=== PATIENT | female | born 2005 | race Caucasian/White ===

== ENCOUNTER 2025-05-09 13:56 | Emergency (ER) | payer BC, SELFPAY ==
--- NOTE | ~2025-05-09 | CT_ITS ---
CLINICAL HISTORY: R flank pain, RLQ pain CT abdomen and pelvis with contrast Comparison: None available Findings: No consolidation at the lung bases. Unremarkable gallbladder and bladder. Lobular contour of the kidneys, a normal variant. The kidneys enhance normally. No hydronephrosis or nephrolithiasis. 1.7 cm right corpus luteum. Intrauterine device within the uterus the other solid organs are unremarkable. No bowel wall thickening or dilation. A normal appendix is identified measuring 5 mm without periappendiceal stranding. Normal vasculature. No lymphadenopathy. No ascites. No acute osseous abnormality. Impression: No acute pathology. Normal appendix. No urinary tract stone, obstruction or CT evidence of infection. Right lower quadrant pain may be secondary to a normal right corpus luteum. This document has been electronically signed by: Katia Bowman MD on 05/09/2025 17:54:12
[2025-05-09 14:00] VITALS: BP 115/71; PULSE 115; RESP 16; TEMP 37.2; O2SAT 97; BMI 20.3
--- NOTE | 2025-05-09 14:03 | ED.BACK ---
HPI - Back Pain/Injury General Chief Complaint: Back Pain/Injury Stated Complaint: Sent from urgent care, abd pain Time Seen by Provider: 05/09/25 16:02 Source: patient and RN notes reviewed Mode of arrival: ambulatory Limitations: no limitations History of Present Illness ED Provider: Renetta Campos PA-C HPI Narrative: This is a 19-year-old female, with a history of depression, who presents to the emergency department with concerns of right-sided back pain and abdominal tenderness for the last week. Patient reports that 1 month ago she had a urinary tract infection and was treated with a course of antibiotics. No injury or trauma to her back. She finish the entire course of antibiotics. She states that over the last week she has had right-sided flank pain and abdominal tenderness. She denies any fevers, chills, chest pain, shortness of breath, nausea, vomiting or diarrhea or constipation. She denies any urinary symptoms. Last menstrual period was 04/16. No abnormal vaginal discharge or bleeding. No other complaints or concerns at this time. MD elicited complaint: back pain Onset (ago): week(s) Timing: constant Severity: moderate Similar Symptoms Previously: No Quality: aching Location: right flank Radiation: none Exacerbating factors: none Relieving factors: none Associated symptoms: denies other symptoms Related Data Allergies Allergy/AdvReac Type Severity Reaction Status Date / Time No Known Allergies Allergy Verified 05/09/25 14:04 Review of Systems Review of Systems: Yes all other systems are reviewed and are negative Constitutional: Constitutional: Reports as per [facility] Social History Social History Smoked in Last 30 Days: No Use of substances other than those prescribed or required for medical reasons: No Advance Directives: No Advance Directives Information Provided: No Do you have a plan to hurt others: No Plan Patient : No Physical Exam Vital Signs: Vital Signs: Last Vital Signs Temp 98.4 F 05/09/25 17:36 Pulse 100 05/09/25 17:36 Resp 18 05/09/25 17:36 BP 112/64 05/09/25 17:36 Pulse Ox 98 05/09/25 17:36 O2 Del Method Room Air 05/09/25 17:36 BMI result Body Mass Index 20.3 Const: General: cooperative, comfortable and no acute distress Orientation/consciousness: patient oriented x3 Limitations: no limitations HEENT: Head: Yes normal to inspection, Yes normocephalic and Yes atraumatic Ears: hearing grossly normal bilaterally General nose exam: Normal external nose present Face and sinus: Yes normal facial exam Mouth: Normal oral and palatal mucosa present, oropharynx normal and moist mucous membranes Throat: Yes posterior oropharynx normal Eyes: General: appearance normal, both eyes and all related structures Eyelids: Yes eyelids normal Conjunctivae: conjunctivae normal Sclerae: sclerae normal Pupils: Equal, round and reactive pupils present EOM: EOMs intact bilaterally Neck: Neck: Yes normal visual inspection, Yes full ROM and Yes no lymphadenopathy Lymphatic: no lymphadenopathy noted Chest: Chest palpation & inspection: normal inspection of the chest Resp: Effort & Inspection: normal respiratory effort and able to speak in complete sentences Auscultation: clear to auscultation bilaterally, no crackles, no rales, no rhonchi and no wheezes Cardio: Rate: regular rate Rhythm: regular rhythm Heart sounds: S1 normal heart sound present and S2 normal heart sound present GI: Other: Abdomen is soft, nontender, nondistended. Slight rebound with palpating llq and patient having pain in RLQ. : General: Yes no CVA tenderness Back/Spine/Pelvis: Back: no CVA tenderness Skin: General skin exam: no rashes or lesions noted Trauma: no lacerations or abrasions Wounds: no wounds Neuro: General: patient oriented x3 and moves all extremities Cranial nerves: Yes Equal, round and reactive pupils present Extrem: General: Yes normal to inspection Right upper extremity: normal to inspection Left upper extremity: normal to inspection Right lower extremity: normal to inspection Left lower extremity: normal to inspection Course Course Course Narrative: This is an RME performed by Radha Guevara CNP: Additional HPI, ROS, PE not included below will be deferred to primary provider. Patient is a 19-year-old female who presents emergency department for evaluation, and from urgent care. Has been experiencing flank pain for the past week, increases with deep inspiration. Per referral from urgent care generalized lower abdominal tenderness on exam with positive Rovsing sign. Denies URI symptoms. Denies GI/ symptoms. HCG was negative. Had microscopic hematuria but no sign of infection. Previously was treated for UTI [place] April of 2025. Plan: Serum labs Medications Administered Discontinued Medications Generic Name Dose Route Start Last Admin Trade Name Freq PRN Reason Stop Dose Admin Iohexol 85 ml 05/09/25 17:25 05/09/25 17:26 Iohexol 350 Mg/Ml 75 Ml Infus..Btl IV 05/09/25 17:26 85 ml ONCE ONE Administration Medical Decision Making Medical Decision Making [facility] Narrative: This is a 19-year-old female who presents emergency department with concerns of right-sided back pain/flank pain as well as abdominal pain for the last week. On arrival, vital signs reveal she is slightly tachycardic at 115bpm, likely secondary to anxiousness. Patient with no right-sided CVA tenderness. Does have slight rebound tenderness with palpation to the left abdomen into the right. Labs were obtained prior to my evaluation, she has no leukocytosis, stable H&H, chemistry with no significant electrolyte derangement. Urine revealing trace leuk esterases, 1+ bacteria, and squamous cells. Differential diagnoses include nephrolithiasis, muscle strain, spasm, appendicitis. Will obtain CT abdomen and pelvis to rule out any acute abdominal pathology. 1747 - repeat vitals reveal that patient heart rate is 100, she is anxious appearing, she has no leukocytosis, afebrile. Not in any current distress. 1803 - CT scan returns revealing no acute pathology, normal appendix, no urinary tract stone, obstruction or evidence of infection. She does have a right corpus luteum, otherwise no other acute findings. Discussed findings with patient, no current concerns. Stable for discharge. Differential Diagnosis Differential Diagnoses: The differential diagnosis associated with the presentation includes See above Admission/Observation Consideration of admission/observation: Escalation of care including admission/observation considered Lab Data [facility] Lab Attestation statement: I reviewed the patient's lab results. See MDM and course 05/09/25 14:33 05/09/25 14:33 Labs: Lab Results 05/09/25 Range/Units 14:33 WBC 6.4 (4.8-10.8) X10*3/uL RBC 4.85 (4.20-5.50) X10*6/uL Hgb 13.8 (12.0-16.0) g/dl Hct 41.2 (37.0-47.0) % MCV 84.9 (80.0-98.0) fL MCH 28.5 (27.0-33.0) pg MCHC 33.5 (31.0-35.0) g/dl RDW 13.4 (11.0-16.0) % Plt Count 211 (160-400) X10*3/uL MPV 9.7 (9.4-12.3) fL Immature Gran % (Auto) 0.5 H (0.0-0.4) % Neut % (Auto) 58.2 (45-73) % Lymph % (Auto) 30.4 (20-40) % [place] % (Auto) 7.8 (2-11) % Eos % (Auto) 2.3 (0-4) % Baso % (Auto) 0.8 (0-2) % Lymph # (Auto) 2.0 (1.2-4.9) X10*3/uL [place] # (Auto) 0.5 (0.1-1.2) X10*3/uL Eos # (Auto) 0.2 (0.0-0.4) X10*3/uL Baso # (Auto) 0.1 (0.0-0.2) X10*3/uL Abs Immat Gran (auto) 0.03 (0.00-0.03) X10*3/uL Absolute Neuts (auto) 3.7 (2.0-8.3) x10*3/uL Absolute Nucleated RBC 0.000 (0.0-0.012) X10*3/uL Nucleated RBC % (auto) 0.0 (0.0-0.2) /100WBC Sodium 139 (135-145) mmol/L Potassium 4.0 (3.3-5.1) mmol/L Chloride 108 (96-108) mmol/L Carbon Dioxide 24 (22-29) mmol/L Anion Gap 11 L (12-20) BUN 9 (9-16) mg/dL Creatinine 0.66 (0.5-1.4) mg/dL Estim Creat Clear Calc 115.0 Estimated GFR > 60 Random Glucose 85 (60-115) mg/dL Calcium 9.1 (8.4-10.2) mg/dL Total Bilirubin 0.4 (0.0-1.0) mg/dL AST 24 (5-31) U/L ALT 20 (0-31) U/L Alkaline Phosphatase 59 (39-117) U/L C-Reactive Protein 0.10 (< or = 0.50) mg/dL Total Protein 7.4 (6.5-8.0) g/dL Albumin 4.6 (3.5-5.0) g/dL Beta HCG, Quant < 2 mIU/mL Urine Color Yellow Urine Appearance Clear Urine pH 5.5 (5.0-9.0) Ur Specific [place] 1.025 (1.005-1.025) Urine Protein Negative (Neg-Trace) mg/dL Urine Glucose (UA) Negative (Negative) mg/dL Urine Ketones Trace (Negative) mg/dL Urine Blood Negative (Negative) Urine Nitrite Negative (Negative) Ur Leukocyte Esterase Trace H (Negative) Urine RBC 0-2 (0-2) /HPF Urine WBC 0-5 (0-5) /HPF Ur Squamous Epith Cells 3-5 (0-2) /HPF Urine Bacteria 1+ (None Seen) Hyaline Casts 0-2 (0-2) /LPF Radiology Impression Discussion of test interpretation with radiology: I have reviewed the radiologist's reading. Radiologist Impression: Findings: No consolidation at the lung bases. Unremarkable gallbladder and bladder. Lobular contour of the kidneys, a normal variant. The kidneys enhance normally. No hydronephrosis or nephrolithiasis. 1.7 cm right corpus luteum. Intrauterine device within the uterus the other solid organs are unremarkable. No bowel wall thickening or dilation. A normal appendix is identified measuring 5 mm without periappendiceal stranding. Normal vasculature. No lymphadenopathy. No ascites. No acute osseous abnormality. Impression: No acute pathology. Normal appendix. No urinary tract stone, obstruction or CT evidence of infection. Right lower quadrant pain may be secondary to a normal right corpus luteum. This document has been electronically signed by: Katia Bowman MD on 05/09/2025 17:54:12 Dictated By: Katia New MD Discharge Plan Discharge Clinical Impression: Acute right flank pain Patient Disposition: Home, Self-Care Instructions: Flank Pain (ED), Warm Compress or Soak (ED) Additional Instructions: You were seen in the ER with concerns of right-sided flank pain. Your workup today was reassuring. Your urine does have trace white cells, however this does not appear to be infectious at this point. We will call you if we need to start you on any antibiotics. Your CT scan does not show any findings to suggest why you are experiencing this pain. You have a corpus luteum on the right, which can cause discomfort. This is a normal finding, and part of your menstrual cycle. This may be attributed to musculoskeletal pain. You may alternate between ibuprofen and or Tylenol as needed for pain and symptoms. Rest, heat or ice can also help, gentle stretching, or massage can also help. Please follow-up with your primary care physician regarding this visit. If any new or worsening symptoms occur including but not limited to worsening pain, fevers, chills, chest pain, shortness of breath, please seek emergent care. Print Language: Luxembourger
[2025-05-09 14:41] LABS: MANUAL DIFF FLAG NO
[2025-05-09 14:42] LABS: Hematocrit 41.2 % (37.0-47.0); Hemoglobin 13.8 g/dl (12.0-16.0); Imm Gran Abs Auto 0.03 X10*3/uL (0.00-0.03); Imm Gran Pct Auto 0.5 % (0.0-0.4); Lymphocytes Absolute Auto 2.0 X10*3/uL (1.2-4.9); Mean Corpuscular HGB Conc 33.5 g/dl (31.0-35.0); Mean Corpuscular Hemoglobin 28.5 pg (27.0-33.0); Mean Corpuscular Volume 84.9 fL (80.0-98.0); NRBC Abs Auto 0.000 X10*3/uL (0.0-0.012); NRBC Pct Auto 0.0 /100WBC (0.0-0.2); Platelet Count 211 X10*3/uL (160-400); Red Blood Count 4.85 X10*6/uL (4.20-5.50); White Blood Count 6.4 X10*3/uL (4.8-10.8)
[2025-05-09 14:43] LABS: Appearance Urine Clear; Glucose Urine UA Negative (Negative); PH 5.5 (5.0-9.0); Specific Gravity - Urine 1.025 (1.005-1.025); UMIC TRIGGER UACC YES
[2025-05-09 15:16] LABS: Alanine Aminotransferase 20 U/L (0-31); Albumin Level 4.6 g/dL (3.5-5.0); Alkaline Phosphatase 59 U/L (39-117); Anion Gap 11 (12-20); Aspartate Amino Transferase 24 U/L (5-31); Blood Urea Nitrogen 9 mg/dL (9-16); Calcium 9.1 mg/dL (8.4-10.2); Carbon Dioxide 24 mmol/L (22-29); Chloride 108 mmol/L (96-108); Creatinine Clr Calc Pharmacy 115.0; Estimated Glomerular Filt Rate > 60; Potassium 4.0 mmol/L (3.3-5.1); Sodium 139 mmol/L (135-145); Total Protein 7.4 g/dL (6.5-8.0)
--- OUTSIDE RECORDS SUMMARY | 2025-05-09 16:24 | XMS_ITS | Data Portability ---
Author Organization [facility], [address] Address [address] [place] [address] Assessment No assessment recorded. Plan of Treatment Reminders Order Date Submit Date Provider Last Modified By Organization Details Last Modified Time Details Appointments None recorded. Lab None recorded. Referral None recorded. Procedures None recorded. Surgeries None recorded. Imaging None recorded. Medication Orders cephalexin [address] [id number], [phone] [place], [address], 4 14:49:16 Patient TargetsNo targets recorded. Patient InstructionsNo instructions recorded. Reason for Referral None Reported. Problems No Known Problems Medical Equipment None Reported. Allergies No known drug allergies Medications Name Sig Start Date Stop Date Status Note LastModified by Organization Details LastModified Time cephalexin 500 mg capsule TAKE 1 CAPSULE EVERY 8 HOURS BY ORAL ROUTE WITH MEAL(S) FOR 10 DAYS FOR INFECTION active Not Available Not Available No t Available DentaGel 1.1 % PLEASE SEE ATTACHED FOR DETAILED DIRECTIONS active Not Available Not Available N ot Available escitalopram 20 mg tablet TAKE 1 TABLET BY MOUTH EVERY DAY active Not Available Not Available No t Available Vitals Date Recorded Body height Body mass index (BMI) [Percentile] Per age and sex Body mass index (BMI) Body weight Oxygen saturation Oxygen saturation in Arterial blood by Pulse oximetry Heart rate Respiratory rate Body temperature Systolic And Diastolic Provider Name and Address Organization Details Last Updated DateTime 4 162.56 cm 9 % 18.4 kg/m2 97957.3 8 g 99 % 99 % 83 /min 18 /min 97.2 [degF] 107/72 mm[Hg] [facility] 14:43:45 Social History Question Answer Notes LastModified by Organizat ion Details LastModified Time Tobacco Smoking Status Never Smoker [facility] 02/06/2024 14:44:42 Have You Had A Flu Shot This Season? No Information not available 02/06/2024 If No, Would You Like A Flu Shot Today? No Information not available 02/06/2024 Have You Had Direct Contact, Or Contact During Intimacy, With Monkeypox Rash, Scabs, Or Body Fluids From A Person With Monkeypox? No Information not available 02/06/2024 What Was The Date Of Your Most Recent Tobacco Screening? 02/06/2024 Information not available 02/06/2024 What Is Your Relationship Status? Other DAITING Information not available 02/06/2024 Have You Recently Traveled Abroad? No Information no t available 02/06/2024 Are You Currently In School? No Information not available 02/06/2024 Sex: Unknown Functional Status Question Answer Note LastModified by Organization D etails LastModified Time Do you or have you ever used any other forms of tobacco or nicotine? No Information not available 02/06/2024 What is your level of alcohol consumption? None Information not available 02/06/2024 Are you currently employed? Yes Information not available 02/06/2024 Mental Status None recorded. Family History Relationship Description Onset Age of this Age Resolved Age Notes LastModified by Organization Details LastModified Time Father No current problems or disability [email or web address] waqas Not available 02/06/2024 14:44:25 Mother No current problems or disability [email or web address] waqas Not available 02/06/2024 14:44:25 Medical History No medical history recorded. Gynecological History Statement/Question Response Date of LMP 01/21/2024 Is there any chance of ? No Obstetrics History GPAL:G 0 P 0 0 0 0 Immunizations Vaccine Type Date Status Note Provider Nam e and Address Organization Details Recorded Time meningococcal B, recombinant 2 completed Salome Botello Heyliger null, [place] - [facility] 02/06/2024 14:44:05 HPV9 7 completed Salome Botello Heyliger null, [place] - [facility] 02/06/2024 14:44:05 HPV9 8 completed Salome Botello Heyliger null, PA - [facility] 02/06/2024 14:44:05 COVID-19, mRNA, LNP-S, PF, 30 mcg/0.3 mL dose 1 completed Salome Botello Heyliger null, [place] - [facility] 02/06/2024 14:44:05 COVID-19, mRNA, LNP-S, PF, 30 mcg/0.3 mL dose 1 completed Salome Botello Heyliger null, [place] - [facility] 02/06/2024 14:44:05 COVID-19, mRNA, LNP-S, PF, 30 mcg/0.3 mL dose 1 completed Salome Botello Heyliger null, [place] - [facility] 02/06/2024 14:44:05 Tdap 6 completed Salome Botello Heyliger null, PA - [facility] 02/06/2024 14:44:05 meningococcal MCV4P 1 completed Salome Botello Heyliger null, PA - [facility] 02/06/2024 14:44:05 meningococcal MCV4P 6 completed Salome Botello Heyliger null, [place] - [facility] 02/06/2024 14:44:05 Influenza, split virus, quadrivalent, PF 8 completed Salome Botello Heyliger null, PA - [facility] 02/06/2024 14:44:06 Influenza, split virus, quadrivalent, PF 9 completed Salome Botello Heyliger null, PA - [facility] 02/06/2024 14:44:06 Influenza, split virus, quadrivalent, PF 0 completed Salome Botello Heyliger null, [place] - [facility] 02/06/2024 14:44:06 Past Encounters Encounter ID Performer Location Encounter Start Date Encounter Closed Date Diagnosis/Indication Diagnosis SNOMED-CT Code Diagnosis ICD10 Code Diagnosis Note [id number] [address] [place] [id number] 05/11/2016 17:19:46 05/11/2016 17:38:23 [id number] Edson Simon NP [facility] [address] [place] [id number] 02/06/2024 13:57:44 02/06/2024 14:51:05 Paronychia of left thumb [id number] L03.012 Cellulitis is a skin infection caused by bacteria, most often strep or staph. It often occurs after a break in the skin from a scrape, cut, bite, or puncture, or after a rash. Cellulitis may be treated without doing tests to find out what caused it. But your doctor may do tests, if needed, to look for a specific bacteria, like methicilli n-resistan t Staphyloco ccus aureus (MRSA). The doctor has checked you carefully, but problems can develop later. If you notice any problems or new symptoms, get medical treatment right away. How can you care for yourself at home? Take your antibiotic s as directed. Do not stop taking them just because you feel better. You need to take the full course of antibiotic s. Prop up the infected area on pillows to reduce pain and swelling. Try to keep the area above the level of your heart as often as you can. If your doctor told you how to care for your infection, follow your doctor's instructio ns. If you did not get instructio ns, follow this general advice: Wash the area with clean water 2 times a day. Don't use hydrogen peroxide or alcohol, which can slow healing. You may cover the area with a thin layer of petroleum jelly, such as Vaseline, and a non-stick bandage. Apply more petroleum jelly and replace the bandage as needed. Be safe with medicines. Take pain medicines exactly as directed. If the doctor gave you a prescripti on medicine for pain, take it as prescribed . If you are not taking a prescripti on pain medicine, ask your doctor if you can take an over-the-c ounter medicine. Follow-up with [facility] as needed. Go to ER if symptoms worsen. Health Concerns Section Related Observation LastModified by Organization Detai ls LastModified Time None Recorded Concern Status LastModified by Organization Details LastModified Time None Recorded Advance Directives Directive None Recorded Payers Insurance Date Sequence Insurance Name Policy Number Policy Baird Covered Member ID Baird Member ID Guarantor Name 02/06/2024 1 CYDNEY (PPO) [id number] Marcio Bullock [id number] Margret Bullock Notes Date Note Type Note Provider Name and Address Organization Details Recorded Time 02/06/2024 text/html Finger PainRepor isaura bypatient.source of patient informationsource of patient information patient; painful swelling left thumb around lateral border , inflamed , indurated, swelling. Onset:gradual onset; 3 days ago Locationlocation: left; Index Finger;distal phalanx Neurovascular Status:no numbness or tingling Symptoms:swelling;nail involvement Treatment:danay Simon NP [address] [place], [address], [place] - [facility] 02/06/2024 14:49:47 OBGyn Episode No OBEpisode recorded.
--- OUTSIDE RECORDS SUMMARY | 2025-05-09 16:24 | XMS_ITS ---
Author Name [facility] Organization Unknown History of Medication Use Medication Directions Dispensed Refills Start Date End Date Stat us amoxicillin-clavulana te (AUGMENTIN) 500-125 mg per tablet Take 1 tablet by mouth 2 (two) times a day. for 10 days 12/23/2024 active fluticasone propionate (FLONASE) 50 mcg/actuation nasal spray TAKE 1 SPRAY (INTRANASAL) DAILY FOR 10 DAYS ADMINISTER INTO EACH NOSTRIL 12/23/2024 active escitalopram (LEXAPRO) 20 mg tablet TAKE 1 TABLET (20 MG TOTAL) BY MOUTH DAILY. PLEASE SCHEDULE APPOINTMENT FOR FURTHER REFILLS. active Problems Problem Status Onset Date Problem Type Date of Resolution Source JANEEN (generalized anxiety disorder) active 2022-11-28 ProblemAct [facility] Sinusitis active 2024-12-27 ProblemAct [facility] Need for immunization against influenza active EncounterDiagnosisAct C T_[facility] Underweight (BMI < 18.5) active 2024-12-27 ProblemAct [facility] Immunizations Vaccine Date Source Lot Number Status Influenza trivalent, 0.5mL, preservative free (Fluarix; FluLaval; Fluzone) ages 6mo and older (Afluria) 3 years and older 12/27/2024 [facility] [id number] completed Encounters Encounter Type Encounter Reason Primary Diagnosis Location Date Ambulatory Underweight Underweight [facility] 12/27/2024 Care Team Organization Name Specialty Phone Email Start Date End Da te [facility] 01/12/2025 [facility] Primary Care 12/28/2024
--- OUTSIDE RECORDS SUMMARY | 2025-05-09 16:24 | XMS_ITS | Clinical Summary ---
Author Organization [facility] [address] [facility] Building Address [address] [place] [address] Phone Care Team Providers Care District Associate Judge Name Role Phone Maday Ortega MD Primary Care Provider [phone] Allergies No known active allergies Medications fluticasone propionate (FLONASE) 50 mcg/actuation nasal spray TAKE 1 SPRAY (INTRANASAL) DAILY FOR 10 DAYS ADMINISTER INTO EACH NOSTRIL 5 Active amoxicillin-cl avulanate (AUGMENTIN) 500-125 mg per tablet Take 1 tablet by mouth 2 (two) times a day. for 10 days 5 Active escitalopram (LEXAPRO) 20 mg tablet Take 1 tablet (20 mg total) by mouth 1 (one) time each day. 90 tablet 5 Active escitalopram (LEXAPRO) 20 mg tablet TAKE 1 TABLET (20 MG TOTAL) BY MOUTH DAILY. PLEASE SCHEDULE APPOINTMENT FOR FURTHER REFILLS. 04/25/20 25 Discontin ued(Reord er) Active Problems Problem Noted Date Diagnosed Date Annual physical exam 12/27/2024 Assessment & Plan (12/27/2024 11:35 AM EST): Patient is a 19 y.o. female with pmhx JANEEN who presents for annual physical. Vital signs notable for low BMI 18 and physical exam wnl Discussed screenings, she is due for cervical cancer screening next year. Declines STI testing today. Discussed immunizations, open to receiving influenza vaccine today. Annual labs ordered Underweight (BMI < 18.5) 12/27/2024 Assessment & Plan (12/27/2024 11:34 AM EST): - Weight is on the lower side, currently at 107 lbs, higher than previous weight of 98 lbs. -Reports a good appetite, eats about 2 meals per day. -Follow-up TSH, A1C, CBC Sinusitis 12/27/2024 Assessment & Plan (12/27/2024 11:35 AM EST): - Currently on amoxicillin for a 10-day course prescribed by urgent care in [place], with 7 days remaining - Reports improvement in ear symptoms but continues to experience a cough and nasal congestion JANEEN (generalized anxiety disorder) 11/28/2022 Assessment & Plan (12/27/2024 11:34 AM EST): - On Lexapro 20 mg for approximately a year and a half with good control of symptoms - Initially started on Zoloft, which was ineffective, leading to the switch to Lexapro Immunizations Name Administration Dates Next Due Influenza trivalent, 0.5mL, preservative free (Fluarix; FluLaval; Fluzone) ages 6mo and older (Afluria) 3 years and older 12/27/2024 Medical History Medical History Date Comments Anxiety Family History Medical History Relation Name Comments Depression Brother Ana Hyperlipidemia Father Hubert Hypertension Father Hubert Diabetes Maternal Grandfather Steve Breast cancer Maternal Grandmother Lelo Cancer Paternal Grandmother Grandma Lung ca ncer Relation Name Status Comments Brother Rain Father Hubert Maternal Grandfather Steve Maternal Grandmother Lelo Paternal Grandmother Grandma Social History Tobacco Use Types Packs/Day Years Used Date Smoking Tobacco: Never Smokeless Tobacco: Never Tobacco Cessation:Counseling Given: Not Answered Alcohol Use Standard Drinks/Week Comments Never 0 (1 standard drink = 0.6 oz pur e alcohol) Housing Instability Answer Date Recorde d Are you worried that in the next 2 months you may not have stable housing? No 12/26/2024 Food Access & Nutrition Answer Date Rec orded Do you have access to a vari ety of food including fruits and vegetables? Yes 12/26/2024 Health Literacy Answer Date Recorded How often do you need to hav e someone help you when you read instructions, pamphlets, or other written material from your doctor or pharmacy? Rarely 12/26/2024 Caregiver: How often do you need to have someone help you when you read instructions, pamphlets, or other written material from your doctor or pharmacy? Not on file 12/26/2024 Financial Risk Answer Date Recorded How hard is it for you to pa y for the very basics like food, housing, medical care, and air conditioning / heating? Not very hard 12/26/2024 Transportation Answer Date Recorded Has the lack of transportati on kept you from meetings, work, or from getting things needed for daily living? No Has the lack of transportati on kept you from medical appointments or from getting medications? No 12/26/2024 Social Isolation Answer Date Recorded How often do you feel lonely or isolated from th ose around you? Rarely 12/26/2024 Food Risk Answer Date Recorded Within the past 12 months we worried whether our food would run out before we got money to buy more. Never true 12/26/2024 Within the past 12 months th e food we bought just didn't last and we didn't have money to get more. Never true 12/26/2024 Dependent Care Answer Date Recorded Do you need help finding or paying for care for your loved ones. For example, child care assistant or elderly care for an older adult? No 12/26/2024 Education Answer Date Recorded Do you think completing more education or training, like finishing a GED, going to college, or learning a trade, would be helpful for you? Yes 12/26/2024 Employment and Income Answer Date Recor ded During the last four weeks, have you been actively looking for work? Yes 12/26/2024 Living Situation Answer Date Recorded What is your living situation? 0 12/26/2024 Comments Unknown Sex and Gender Information Value Date Recorded Sex Assigned at Not on file Legal Sex Female 12:19 PM EST Gender Identity Not on file Sexual Orientation Not on file Obstetrics History Last Filed Vital Signs Vital Sign Reading Time Taken Comments Blood Pressure 107/72 12/27/2024 10:44 AM EST Pulse 85 12/27/2024 10:44 AM EST Temperature 36.7 C (98 F) 12/27/2024 10:44 AM EST Respiratory Rate - - Oxygen Saturation 99% 12/27/2024 10:44 AM EST Inhaled Oxygen Concentration - - Weight 48.5 kg (107 lb) 12/27/2024 10:44 AM EST Height 162.6 cm (5' 4 ) 12/27/2024 10:44 AM EST Body Mass Index 18.37 12/27/2024 10:44 AM EST Plan of Treatment Health Maintenance Due Date Last Done Comments Gonorrhea/Chlamydia Screening 2004 Meningococcal B Vaccine (2 of 2 - Trumenba SCDM 2-dose series) 12/28/2022 06/27/2022 COVID-19 Vaccine (4 - season) 2024 10/29/2021, 03/09/2021, 02/14/2021 HIV Screening 12/24/2024 Hepatitis C Screening 12/24/2024 Depression Screening 12/26/2025 12/26/2024 Social Influencers of Health Screening 12/26/2025 12/26/2024 Annual Well Child Visit (3-21 years old) 12/27/2025 12/27/2024, 06/27/2022, 12/28/2020, Additional history exists DTaP,Tdap,and Td Vaccines (7 - Td or Tdap) 03/04/2026 03/04/2016, 09/12/2008, 12/27/2005, Additional history exists Hepatitis B Vaccines Completed 2004, 2004, 2004, Additional history exists HIB Vaccines Completed 09/23/2005, 12/05, 2004, Additional history exists Pneumococcal Vaccine: Pediatrics (0 to 5 Years) and At-Risk Patients (6 to 49 Years) Completed 09/23/2005, 2004, 2004, Additional history exists IPV Vaccines Completed 09/12/2008, 12/05, 2004, Additional history exists MMR Vaccines Completed 09/12/2008, 06/28/2005 Varicella Vaccines Completed 09/12/2008, 06/28/2005 Hepatitis A Vaccines Completed 10/06/2014, 02/15/20 14 HPV Vaccines Completed 07/16/2018, 05/26/2017 Meningococcal ACWY Vaccine Completed 12/28/2020, Influenza Vaccine Completed 12/27/2024, , 07/26/2019, Additional history exists RSV Immunization Patients Under 20 months Aged Out No longer eligible based on patient's age to complete this topic Insurance [facility] Care Teams District Associate Judge Relationship Specialty Start Date End Date Maday Ortega MD [address] [place] [address] [place] [id number] PCP - General Family Medicine 12/27/24
--- OUTSIDE RECORDS SUMMARY | 2025-05-09 16:24 | XMS_ITS | Encounter Summary ---
Author Organization [facility] Address [address] [place] [phone] Phone Care Team Providers Care Wheel And Pinion Inspector Name Role Phone Janet Mckinney MD Primary Care Provider [phone] Encounter Details Date Type Department Care Team (Late st Contact Info) Description 06/19/2017 Conversion Encounter [facility] [place] [address] [place] [address] Social History Tobacco Use Types Packs/Day Years Used Date Smoking Tobacco: Never Assessed Comments Unknown Sex and Gender Information Value Date Recorded Sex Assigned at Female 06/27/2022 9:34 AM EDT Legal Sex Female 5:06 PM EDT Gender Identity Female 06/27/2022 9:34 AM EDT Sexual Orientation Lesbian or [place] 06/27/2022 9: 34 AM EDT documented as of this encounter Plan of Treatment Not on file documented as of this encounter Visit Diagnoses Not on filedocumented in this encounter Care Teams Wheel And Pinion Inspector Relationship Specialty Start Date End Date Janet Mckinney MD [address] [place] [id number] PCP - General 06/13/17 08/17/24 documented as of this encounter
[2025-05-09] MEDS: iohexoL 350 MG/ML 75 ML INFUS..BTL 85 ML IV (17:26)
[2025-05-09 17:36] VITALS: BP 112/64; PULSE 100; RESP 18; TEMP 36.9; O2SAT 98
--- NOTE | 2025-05-09 17:40 | PC.NURSE ---
patient a&ox3, iv inserted, labs previously drawn, pt states she has 4-5/10 back pain- increases with movement, declining need of pain medication, pt had CT scan performed- awaiting results, vitals currently stable, call gutierrez within reach, plan of care ongoing
[2025-05-09 18:34] VITALS: BP 116/70; PULSE 98; RESP 16; TEMP 36.9; O2SAT 98
== END 2025-05-09 18:35 | disposition home or self-care (01) ==
PROVIDERS: Nurse Practitioner Family; Emergency Provider Emergency Medicine; PCP Student in an Organized Health Care Education/Training Program
DX: R10.2 Pelvic and perineal pain (principal); R10.819 Abdominal tenderness, unspecified site; M54.50 Low back pain, unspecified
CPT/HCPCS: 36415; 74177; 80053; 81001; 84702; 85025; 86140; 99284; Q9967

== ENCOUNTER → 2025-05-09 16:15 | Outpatient (BNV) | payer BC, SELFPAY | PROVIDERS: Emergency Provider Emergency Medicine; PCP Student in an Organized Health Care Education/Training Program; Visit Provider Radiology Diagnostic Radiology | DX: R10.31 Right lower quadrant pain (principal) | CPT/HCPCS: 74177 ==